=== PATIENT | male | born 1985 | race Caucasian/White ===

== ENCOUNTER 2019-03-07 10:30 | Day surgery (SDC) | payer OTHER ==
[2019-03-07] MEDS ORDERED: Sodium Chloride 0.9(Preservative Free) 10 ML IJ ONE (10:31)
[2019-03-07] MEDS ORDERED: DIPRIVAN 200 MG/20 ML IV ONE (10:31)
[2019-03-07] MEDS ORDERED: Depo-Medrol 40 MG/ML IM ONE (10:31)
[2019-03-07] MEDS ORDERED: Ketamine HCl 50 MG/ML IV ONE (10:31)
[2019-03-07] MEDS ORDERED: MORPHINE SULFATE 10 MG/ML ONE (13:02)
--- NOTE | 2019-03-07 14:49 | XRAY ---
Indication: Left L4-S1 IGNACIO. Intraoperative fluoroscopy was provided for 32 seconds. 2 digital spot images submitted for interpretation demonstrates posterior needle tips projecting over the expected course of the left L4-L5 nerve roots. Small amount of contrast injected for needle tip placement. Correlate with intraoperative findings/report.
--- NOTE | 2019-03-07 15:03 | XRAY ---
32 seconds fluoroscopy time in surgery for left L4-S1 IGNACIO.
[2019-03-07] MEDS ORDERED: Lactated Ringers 1,000 ML IV ONE (17:03)
== END 2019-03-07 13:20 | disposition home or self-care (01) ==
LOC: SDC-PAIN 10:30
PROVIDERS: ATTEND Psychiatry & Neurology Pain Medicine
DX: M54.16 Radiculopathy, lumbar region (principal); F32.9 Major depressive disorder, single episode, unspecified; M19.90 Unspecified osteoarthritis, unspecified site
CPT/HCPCS: 64483; 64484; 72020; 77003; J1030; J2270; J2704; Q9966